=== PATIENT | male | born 1960 | race Hispanic/Latino ===

== ENCOUNTER 2020-12-13 06:56 | Day surgery (SDC) | payer OTHER ==
[~2020-12-13 06:56] MED LIST: ACETAMINOPHEN 500 MG TAB PO SCH; CELECOXIB 200 MG CAP PO NR; GABAPENTIN 300 MG CAP PO NR; LACTATED RINGERS 1,000 ML IV SCH; MIDAZOLAM 2 MG/2 ML INJ IV NR
[2020-12-13] MEDS ORDERED: HYDROmorphone 1 MG/1 ML INJ IV PRN (07:44)
[2020-12-13] MEDS ORDERED: ONDANSETRON 4 MG/2 ML INJ IV PRN (07:44)
--- NOTE | 2020-12-13 07:44 | Anesthesia Day of Surgery ---
Anesthesia Day of Surgery - Day of Surgery Patient Examined: Yes Patient H&P Reviewed: Yes Patient is NPO: Yes
--- NOTE | 2020-12-13 07:44 | Anesthesia Consultation ---
Anesthesia Consult and Med Hx Date of service: 12/13/20 - Airway Anesthetic Teeth Evaluation: Good ROM Head & Neck: Adequate Mental/Hyoid Distance: Adequate Mallampati Class: Class III Intubation Access Assessment: Possibly Difficult - Pulmonary Exam CTA: Yes - Cardiac Exam Cardiac Exam: RRR - Pre-Operative Health Status ASA Pre-Surgery Classification: ASA2 Proposed Anesthetic Plan: General - Pulmonary Hx Smoking: Yes (quit cigarettes 20yrs ago; currently 1 cigar/day) Hx Respiratory Symptoms: No Hx Sleep Apnea: No (RENZO PRE SCREEN HIGH RISK) - Cardiovascular System Hx Hypertension: Yes (took amlodipine this morning) Hx Heart Attack/AMI: No Hx Percutaneous Transluminal Coronary Angioplasty (PTCA): No - Central Nervous System CVA: No - Gastrointestinal Hx Gastroesophageal Reflux Disease: No - Endocrine Hx Renal Disease: No Hx Liver Disease: No Hx Insulin Dependent Diabetes: No Hx Non-Insulin Dependent Diabetes: No Hx Thyroid Disease: No - Other Systems Hx Obesity: Yes (BMI 31) - Additional Comments Anesthesia Medical History Comments: No hx anesthetic complications.
[2020-12-13 09:26] LABS: BUN/Creatinine Ratio 17; Blood Urea Nitrogen 17 mg/dL (9-20); Hemolysis Index 5
[2020-12-13] MEDS ORDERED: ceFAZolin/STERILE WATER 2 GM/20 ML SYRINGE IV NR (11:37)
[2020-12-13] MEDS ORDERED: HEPARIN 5,000 UNIT/1 ML VIAL SUB-Q NR (11:38)
[2020-12-13] MEDS ORDERED: fentaNYL 100 MCG/2 ML INJ ONE (12:13)
[2020-12-13] MEDS ORDERED: propofoL 200 MG/20 ML VIAL IV ONE (12:13)
[2020-12-13] MEDS ORDERED: BUPIVACAINE-EPINEPHRINE/PF 0.5%-1:200,000 (10 ML) VIAL INFILTRATI ONE (12:14)
[2020-12-13] MEDS ORDERED: SUCCINYLCHOLINE CHLORIDE 200 MG/10 ML INJ MDV ONE (12:15)
[2020-12-13] MEDS ORDERED: LIDOCAINE MPF (2%) 20 MG/1 ML VIAL 5 ML ONE (12:15)
[2020-12-13] MEDS ORDERED: ROCURONIUM 50 MG/5 ML INJ IV ONE (12:56)
[2020-12-13] MEDS ORDERED: dexAMETHasone 20 MG/5 ML VIAL ONE (12:58)
[2020-12-13] MEDS ORDERED: ONDANSETRON 4 MG/2 ML INJ ONE (12:58)
[2020-12-13] MEDS ORDERED: KETOROLAC 30 MG/1 ML INJ ONE (12:58)
[2020-12-13] MEDS ORDERED: BUPIVACAINE-EPINEPHRINE/PF 0.5%-1:200,000 (30 ML) VIAL INFILTRATI ONE ×2 (13:13)
[2020-12-13] MEDS ORDERED: SODIUM CHLORIDE 0.9% IRR 1,500 ML BOTTLE IR ONE (13:13)
[2020-12-13] MEDS ORDERED: GLYCOPYRROLATE 0.4 MG/2 ML INJ ONE (13:26)
[2020-12-13] MEDS ORDERED: NEOSTIGMINE 10MG/10 ML INJ MDV ONE (13:26)
--- NOTE | 2020-12-13 13:50 | Procedure Note ---
Date of procedure: 12/13/20 Pre-op diagnosis: Incarcerated ventral hernia Post-op diagnosis: same Procedure: Open repair of incarcerated ventral hernia Description of procedure: Pt was placed supine on the OR table. GETA was administered. Abdomen was prepped and draped. Skin and SQ tissue over the hernia were infiltrated with 7 ml of 0.5% Marcaine with epinephrine. Skin was incised. Hernia sac was immediately identified and was dissected down to it's fascial margins. Sac was entered and was found to contain incarcerated omentum. Omentum was freed from the hernia sac and returned to the peritoneal cavity. A medium piece of Ventralex ST mesh was inserted into the peritoneal cavity and was appropriately positioned. The fascial defect was close and the mesh simultaneously fixed to the fascia with interrupted sutures of 0-Ethibond. Skin was closed with a running subcuticular suture of 4-0 Monocryl. Skin glue was applied. Pt tolerated the procedure well. He was extubated in the OR and was taken to PACU in stable condition. Anesthesia: GETA Surgeon: KATERIN SINGH Estimated blood loss: minimal Pathology: none Specimen disposition: discarded Condition: stable Disposition: PACU
[2020-12-13] MEDS ORDERED: oxyCODONE /ACETAMINOPHEN 5-325MG TAB ONE (14:29)
[2020-12-13] MEDS ORDERED: oxyCODONE /ACETAMINOPHEN 5-325MG TAB PO PRN (14:32)
--- NOTE | 2020-12-13 14:44 | Post Anesthesia Evaluation ---
- Post Anesthesia Evaluation Patient Participated: Yes Airway Patent: Yes Stable Respiratory Function: Yes Nausea/Vomiting: No Temp > 96.8F: Yes Pain Manageable: Yes Adequeate Hydration: Yes Anesthesia Complications: No
[2020-12-13 16:18] VITALS: BP 115/78
== END 2020-12-13 06:57 | disposition home or self-care (01) ==
LOC: OR 06:56
PROVIDERS: ATTEND Surgery
DX: K43.6 Other and unspecified ventral hernia with obstruction, without gangrene (principal); E78.00 Pure hypercholesterolemia, unspecified; I10 Essential (primary) hypertension; E66.9 Obesity, unspecified; K21.9 Gastro-esophageal reflux disease without esophagitis; F17.210 Nicotine dependence, cigarettes, uncomplicated; Z72.89 Other problems related to lifestyle; Z79.899 Other long term (current) drug therapy; Z68.31 Body mass index [BMI] 31.0-31.9, adult
CPT/HCPCS: 36415; 49561; 49568; 80048; C1781; J0330; J0690; J1100; J1644; J1885; J2250; J2405; J2704; J2710; J3010; J7120